=== PATIENT | male | born 1985 | race Caucasian/White ===

== ENCOUNTER 2024-01-24 20:36 | Inpatient (IN) | payer BC, SELFPAY ==
[2024-01-24 21:00] VITALS: BP 147/73; PULSE 98; RESP 18; TEMP 36.4; O2SAT 93
[2024-01-25] VITALS: BMI 30.7
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
[2024-01-25 08:15] VITALS: BP 150/89; PULSE 96; RESP 16; TEMP 36.9; O2SAT 98
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
--- NOTE | 2024-01-25 11:25 | P.CONHOSP_ITS ---
History of Present Illness Data of Consult Service Date: 01/25/24 Requesting physician: Yves Yeager Primary Care Provider: Unknown Physician HPI Reason for consult: medical H&P 38 yo male admitted to [facility] adult psych with a hx of PSVT s/p ablation >10 years ago. he reports he was unable to tolerate medical management and is followed by cardiolology with no medical interventions at this time. he reports his BP is usually slightly elevated and continues with mild tachycardia, which is chronic. he initially was admitted to [facility] for depression and suicide attempt. he tested positive for COVID on 01/18 and continues to isolate although asx and was never symptomatic. he has no medical concerns today, his only concern is that he is here and cannot leave the room due to the positive COVID test 6 days ago. he denies rhinorrhea, cough, SOB, fever, chills, nausea, vomiting, diarrhea or chest pain. Review of Systems Constitutional: Constitutional: Denies body ache(s), Denies chills, Denies fatigue, Denies fever(s), Denies headache(s) and Denies weakness Eyes: Eyes: Denies loss of vision and Denies other visual disturbances ENT: Reports Normal hearing present, Denies headache(s), Denies nasal congestion, Denies nasal discharge and Denies sore throat Cardiovascular: Cardiovascular: Denies chest pain, Denies rapid heart rate, Denies lightheadedness and Denies dyspnea Respiratory: Respiratory: Denies cough and Denies dyspnea Gastrointestinal: Gastrointestinal: Denies abdominal pain, Denies diarrhea, Denies nausea and Denies vomiting Genitourinary: Genitourinary: Denies dysuria Musculoskeletal: Musculoskeletal: Denies myalgias, Denies arthralgias and Denies muscle weakness Integumentary/Breasts: Skin/Breast: Denies rash Neurologic: Reports Normal hearing present, Denies headache(s), Denies loss of vision and Denies weakness Psychiatric: Psychiatric: Reports depression Endocrine: Endocrine: Denies fatigue Hematologic/Lymphatic: Hematologic/Lymphatic: Denies easy bleeding and Denies lymphadenopathy Allergic/Immunologic: Allergic/Immunologic: Denies seasonal rhinorrhea [facility] Medical History (Updated 01/25/24 @ 11:50 by Amanda Celis PA-C) Paroxysmal SVT (supraventricular tachycardia) Functional capacity: independent ambulation Surgical History (Updated 01/25/24 @ 11:04 by ELAINE Bowling H/O cardiac radiofrequency ablation Social History Household Members: Family Housing: House Do you presently have visiting nurse or other home services: No Patient Tobacco Use Status: Former Tobacco user Smoked in Last 30 Days: No Patient Interested in Nicotine Replacement: No Patient Given Instructions on How to Stop Smoking: No Second Hand Smoke Exposure: Yes Use of substances other than those prescribed or required for medical reasons: No Currently Displaying Signs/Symptoms of Drug Intoxication Withdrawal: No Any prior treatment program specific to substance use: No Have you been hit, kicked, punched, or otherwise hurt by someone within the past year? If so, by whom?: No Do you feel safe in your current relationship?: No Is there a partner from a previous relationship who is making you feel unsafe now?: No Are you made to feel afraid or neglected: No Spiritual Healthcare Practices: unknown Sabianism Healthcare Practices: unknown Cultural Healthcare Practices: unknown Advance Directives: No Advance Directives Information Provided: Yes Do you have a plan to hurt others: No Plan Recently lost weight without trying: No Eating poorly because of decreased appetite: No Nutrition Risks: No Nutritional Risk Poor oral hygiene: No Narrative: rare etoh - beer. former smoker. Meds Allergies Allergy/AdvReac Type Severity Reaction Status Date / Time No Known Allergies Allergy Unverified 01/17/20 18:28 Active Medications: Current Medications Acetaminophen (Acetaminophen 325 Mg Tablet) 650 mg PO Q6H PRN PRN Reason: Headache/Pain Mild Scale (1-3) Al Hydroxide/Mg Hydroxide (Magnesium Hydrox/Alum Hydrox 30 Ml Oral.Susp) 30 ml PO Q6H PRN PRN Reason: Heartburn/Nausea Hydroxyzine HCl (Hydroxyzine Hcl 25 Mg Tablet) 25 mg PO Q6H PRN PRN Reason: Anxiety Magnesium Hydroxide (Milk Of Magnesia 30 Ml Oral.Susp) 30 ml PO DAILY PRN PRN Reason: Constipation Nicotine (Nicotine 21 Mg Patch.Td24) 21 mg TRANSDERMA DAILY PRN PRN Reason: smoking cessation Nicotine Polacrilex (Nicotine Polacrilex 2 Mg Gum) 4 mg BUCCAL Q2H PRN PRN Reason: Nicotine Cravings Olanzapine (Olanzapine 5 Mg Tablet) 5 mg PO TID PRN PRN Reason: Restlessness Trazodone HCl (Trazodone Hcl 50 Mg Tablet) 50 mg PO BEDTIME MRX1 PRN PRN Reason: Insomnia Home Medications ?Medication ?Instructions ?Recorded ?Confirmed ?Last Taken ?Type No Known Home Meds 01/25/24 01/25/24 Unknown History Physical Exam Vital Signs and Narrative: Vital Signs: Last Vital Signs Temp 97.6 F 01/24/24 21:00 Pulse 98 01/24/24 21:00 Resp 18 01/24/24 21:00 BP 147/73 H 01/24/24 21:00 Pulse Ox 93 01/24/24 21:00 O2 Del Method Room Air 01/24/24 21:00 BMI result Body Mass Index 30.7 Const: General: healthy appearing and no acute distress Nutritional Appearance: average body habitus Orientation/consciousness: patient oriented x3 Limitations: no limitations HEENT: Head: Yes normal to inspection and Yes normocephalic Ears: hearing grossly normal bilaterally General nose exam: Normal external nose present Face and sinus: Yes normal facial exam Mouth: Normal oral and palatal mucosa present Teeth and gingiva: dentition normal Throat: Yes posterior oropharynx normal Eyes: General: appearance normal, both eyes and all related structures Visual Tomlinson: normal visual tomlinson by confrontation Alignment and Position: alignment normal and position normal Eyelids: Yes eyelids normal Conjunctivae: conjunctivae normal Sclerae: sclerae normal Corneas: corneas normal Pupils: Equal, round and reactive pupils present, Pupils normal by confrontation and Pupil accommodation reflex normal EOM: EOMs intact bilaterally Direct Ophthalmoscopy: normal light reflex and no photophobia Neck: Yes normal visual inspection, Yes full ROM and Yes no lymphadenopathy Thyroid: Thyroid normal Lymphatic: no lymphadenopathy noted Chest: Chest palpation & inspection: normal inspection of the chest Resp: Effort & Inspection: normal respiratory effort and able to speak in complete sentences Auscultation: clear to auscultation bilaterally Cardio: Rate: tachycardic Rhythm: regular rhythm Heart sounds: S1 normal heart sound present and S2 normal heart sound present GI: Inspection: Yes normal to inspection Percussion: Yes normal to percussion Auscultation: normal bowel sounds Back/Spine/Pelvis: Cervical Spine: cervical ROM normal Skin: General skin exam: no rashes or lesions noted Neuro: General: patient oriented x3, gait normal, tone normal, moves all extremities and Normal light touch and pain sensation Cranial nerves: Yes CN's II-XII intact bilaterally, Yes Facial sensation intact/muscles of mastication intact, Yes Equal, round and reactive pupils present, Yes Bilaterally intact EOM present, Yes Nystagmus not present, Yes Normal facial strength present, Yes Midline tongue present, Yes Normal hearing present, Yes Ability to bilaterally rotate head present and Yes Ability to bilaterally elevate shoulders present Cognition (Neuro): normal cognition Gait exam (Neuro): Normal gait present Motor exam (neuro): 5/5 motor strength present throughout Extrem: General: Yes normal to inspection Psych: Appearance: grossly normal Mental Status: mental status grossly normal Speech and movement: Normal speech and movement present Affect: normal affect Attitude: cooperative Thought process: Normal thought proc ess present Thought content: Normal thought content present Insight: Good insight present (Psych) Judgement: Good judgement present (Psych) Assessment and Plan (1) Routine medical exam: Status: Acute Plan 38 yo male with a hx of PSVT s/p ablation >10 years ago. no medical concerns. COVID + 01/18, never symptomatic. mood disorder/SA - plan per psych elevated blood pressures - no dx of HTN was normotensive at [facility] - if remains hypertensive with BP 140/90 add amlodipine 5mg QD COVID 19 dx - positive test 01/18, repeat test pending - asx no intervention needed, recommend isolation per infection control recommendations Thank you for this consult, signing off at this time. Please do not hesitate to reach out for any questions, concerns or any acute medical issues that should arise.
[2024-01-25 12:08] LABS: Influenza A PCR NEGATIVE (Negative); Influenza B PCR NEGATIVE (Negative); Resp Syncy Virus RNA Qual PCR NEGATIVE (Negative); SARS COV2 PCR INHOUSE POSITIVE (Negative)
[2024-01-25 20:00] VITALS: BP 137/92; PULSE 102; RESP 18; TEMP 36.3; O2SAT 96
[2024-01-26 08:26] VITALS: BP 120/73; PULSE 73; RESP 16; TEMP 36.9; O2SAT 98
--- NOTE | 2024-01-26 12:13 | HO.PSYCHPN ---
Subjective Subjective Date of Service: 01/26/24 Reason For Visit: Major Depression severe with psychosis Subjective Notes: Conditional Voluntary Healthcare Proxy: No Guardianship: No Medical Problems Affecting Mental Status: No Interim History: Pt visable in milieu, in groups, with peers. Reports feeling supported, finds being able to just talk is helpful. Will consider psychotherapy upon discharge. Discussed [facility]- If I can resolve this I would like to see if I could go to college for a counseling program. Pt and continue to request discharge on 01/26 to begin legal work for pt's defense. Medication Compliance: No Side effects from medications: No Attending Groups: Yes Review of Systems Acute medical concerns: No Medical Review of Systems: unchanged Review of Systems Review of Systems Yes all other systems are reviewed and are negative Mental Status Exam Mental Status Exam Patient Appearance: Appropriate Patient Orientation: Person, Place, Time and Situation Level of Consciousness: Alert Patient Behavior: Appropriate, Talkative, Cooperative and Good Eye Contact Mood Description: Appropriate Affect Description: Appropriate Patient Cognition Impaired: No Ability to Follow Directions: Good Speech Pattern: Clear, Appropriate, Spontaneous Speech and Coherent Memory Description: Intact Hallucinations: None Delusions: Not Present Thought Process: Intact and Goal Oriented Thought Content: positive for Intact and positive for Goal Oriented Depressive Symptoms: Increased Anxiety, Thoughts of /Suicide (denies-discussed attempt as reactive to an overwhelming shocking situation) and Low Self Esteem Judgement: Good Diagnostics Vital Signs (24Hr): Vital Signs - 24 hr 01/25/24 20:00 01/26/24 08:26 Temperature 97.3 F 98.5 F Pulse Rate 102 H 73 Respiratory Rate 18 16 Blood Pressure 137/92 H 120/73 Pulse Oximetry 96 98 Oxygen Delivery Method Room Air Room Air BMI result Body Mass Index 30.7 Labs Labs: Laboratory Results - last 48 hr 01/25/24 11:05 Influenza Type A (PCR) NEGATIVE Influenza Type B (PCR) NEGATIVE RSV RNA Qual (PCR) NEGATIVE SARS-CoV-2 RNA (RT-PCR) POSITIVE A Medications Medications Current Medications Acetaminophen (Acetaminophen 325 Mg Tablet) 650 mg PO Q6H PRN PRN Reason: Headache/Pain Mild Scale (1-3) Al Hydroxide/Mg Hydroxide (Magnesium Hydrox/Alum Hydrox 30 Ml Oral.Susp) 30 ml PO Q6H PRN PRN Reason: Heartburn/Nausea Hydroxyzine HCl (Hydroxyzine Hcl 25 Mg Tablet) 25 mg PO Q6H PRN PRN Reason: Anxiety Magnesium Hydroxide (Milk Of Magnesia 30 Ml Oral.Susp) 30 ml PO DAILY PRN PRN Reason: Constipation Nicotine (Nicotine 21 Mg Patch.Td24) 21 mg TRANSDERMA DAILY PRN PRN Reason: smoking cessation Nicotine Polacrilex (Nicotine Polacrilex 2 Mg Gum) 4 mg BUCCAL Q2H PRN PRN Reason: Nicotine Cravings Olanzapine (Olanzapine 5 Mg Tablet) 5 mg PO TID PRN PRN Reason: Restlessness Trazodone HCl (Trazodone Hcl 50 Mg Tablet) 50 mg PO BEDTIME MRX1 PRN PRN Reason: Insomnia Allergies Allergies Allergy/AdvReac Type Severity Reaction Status Date / Time No Known Allergies Allergy Unverified 01/17/20 18:28 Assessment & Plan Assessment & Plan (1) Acute stress reaction: Status: Acute Code(s): F43.0 - Acute stress reaction Assessment and Plan: 01/25- Discharge 01/26 with to prepare for legal defense. Plan 38 yo male with a hx of PSVT s/p ablation >10 years ago. no medical concerns. COVID + 01/18, never symptomatic. mood disorder/SA - plan per psych elevated blood pressures - no dx of HTN was normotensive at [facility] - if remains hypertensive with BP 140/90 add amlodipine 5mg QD COVID 19 dx - positive test 01/18, repeat test pending - asx no intervention needed, recommend isolation per infection control recommendations Thank you for this consult, signing off at this time. Please do not hesitate to reach out for any questions, concerns or any acute medical issues that should arise. Informed Consent: understands Reason for continued inpatient stay Substantial Risk for: stable for discharge Time Spent With Patient Time: Total time managing care of this patient today ____ minutes.
[2024-01-26 20:00] VITALS: BP 139/89; PULSE 97; TEMP 36.8; O2SAT 97
[2024-01-27 08:00] VITALS: BP 125/65; PULSE 93; RESP 16; TEMP 37.2; O2SAT 99
[2024-01-27 09:08] LABS: Alanine Aminotransferase 28 U/L (0-40); Albumin Level 4.8 g/dL (3.5-5.0); Alkaline Phosphatase 57 U/L (39-117); Anion Gap 13 (12-20); Aspartate Amino Transferase 21 U/L (5-37); Bilirubin Total 0.8 mg/dL (0.0-1.0); Blood Urea Nitrogen 19 mg/dL (9-16); Carbon Dioxide 28 mmol/L (22-29); Chloride 103 mmol/L (96-108); Cholesterol 166 mg/dL (<200); Estimated Glomerular Filt Rate > 60; Glucose Random 96 mg/dL (60-115); HDL Cholesterol 34 mg/dL (>40); LDL Cholesterol Calculated 110 mg/dL (<100); Potassium 3.6 mmol/L (3.3-5.1); Sodium 140 mmol/L (135-145); Total Protein 8.4 g/dL (6.5-8.0); Triglycerides 111 mg/dL (<150)
[2024-01-27 09:29] LABS: Estimated Average Glucose 100 mg/dL; Hemoglobin A1c % 5.1 % (<6.0)
[2024-01-27 09:53] LABS: TSH reflex Free T4 1.34 uIU/mL (0.32-4.0)
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
== END 2024-01-27 11:08 | disposition home or self-care (01) | DRG 756 ==
PROVIDERS: Psychiatry & Neurology Psychiatry; Admitting Provider Psychiatry & Neurology Psychiatry; Visit Provider Clinical Nurse Specialist Psychiatric/Mental Health, Adult
DX: F43.0 Acute stress reaction (principal); U07.1 COVID-19; R03.0 Elevated blood-pressure reading, without diagnosis of hypertension; Z91.51 Personal history of suicidal behavior; Z62.823 Parent-step child conflict; Z87.891 Personal history of nicotine dependence
CPT/HCPCS: 0241U; 36415; 80053; 80061; 83036; 84443

== ENCOUNTER → 2024-01-24 20:36 | Outpatient (BNV) | payer BC, SELFPAY | PROVIDERS: Admitting Provider Psychiatry & Neurology Psychiatry; Visit Provider Clinical Nurse Specialist Psychiatric/Mental Health, Adult | DX: F43.0 Acute stress reaction (principal) | CPT/HCPCS: 90792; 99231; 99238 ==

== ENCOUNTER → 2024-01-24 20:36 | Outpatient (BNV) | payer BC, SELFPAY | PROVIDERS: Admitting Provider Psychiatry & Neurology Psychiatry; Visit Provider Physician Assistant | DX: U07.1 COVID-19 (principal) | CPT/HCPCS: 99221 ==